=== PATIENT | female | born 1930 | race African-American/Black ===

== ENCOUNTER 2017-10-30 14:55 | Inpatient (IN) ==
[2017-10-30 15:22] LABS: Baso # (Auto) 0.1 th/mm3 (0.0-0.2); Baso % (Auto) 1.1 % (0.0-2.0); Eos # (Auto) 0.1 th/mm3 (0.0-0.4); Eos % (Auto) 1.6 % (0.0-4.0); Hematocrit 35.1 % (35.0-46.0); Hemoglobin 11.2 gm/dL (11.6-15.3); Lymph # (Auto) 2.8 th/mm3 (1.0-4.8); Lymph % (Auto) 37.4 % (9.0-44.0); Mean Corpuscular HGB Conc 31.9 % (32.0-36.0); Mean Corpuscular Hemoglobin 27.1 pg (27.0-34.0); Mean Corpuscular Volume 85.1 fL (80.0-100.0); Mean Platelet Volume 9.7 fL (7.0-11.0); Mono # (Auto) 0.5 th/mm3 (0.0-0.9); Neut % (Auto) 52.9 % (16.0-70.0); Platelet Count 189 th/mm3 (150-450); Red Blood Count 4.13 mil/mm3 (4.00-5.30); Red Cell Distribution Width 15.4 % (11.6-17.2); White Blood Count 7.6 th/mm3 (4.0-11.0)
--- NOTE | 2017-10-30 15:30 | CT ---
EXAM DATE: 10/30/2017 3:15 PM EDT AGE/SEX: 87 years / Female INDICATIONS: Stroke alert; slurred speech, altered mental status. CLINICAL DATA: This is the patient's initial encounter. Patient reports that signs and symptoms have been present for 1 day and indicates a pain score of Nonresponsive. MEDICAL/SURGICAL HISTORY: Diabetes. Hypertension. Pacemaker. RADIATION DOSE: 56.35 CTDI (mGy) COMPARISON: No prior exams available for comparison. Report was called to Dr. Lee at 1525 TECHNIQUE: CT of the head without contrast. Using automated exposure control and adjustment of the mA and/or kV according to patient size, radiation dose was kept as low as reasonably achievable to ob tain optimal diagnostic quality images. DICOM format image data is available electronically for revi ew and comparison. FINDINGS: Cerebrum: The ventricles are normal for age. No evidence of midline shift, mass lesion, hemorrhage or acute infarction. No extraaxial fluid collections are seen. Posterior Fossa: The cerebellum and brainstem are intact. The 4th ventricle is midline. The cerebe llopontine angle is unremarkable. Extracranial: The visualized portion of the orbits is intact. Skull: The calvaria is intact. No evidence of skull fracture. CONCLUSION: 1. Negative for acute process Electronically signed by: Ramiro Christie MD 10/30/2017 3:29 PM EDT
[2017-10-30 15:35] LABS: Activated Partial Thrombo Time 22.6 sec (24.3-30.1); Anion Gap 9 meq/L (5-15); Blood Urea Nitrogen 20 mg/dL (7-18); Calcium 9.4 mg/dL (8.5-10.1); Carbon Dioxide 22.7 meq/L (21.0-32.0); Chloride 113 meq/L (98-107); Glomerular Filtration Rate 42 mL/min (>89); Glucose,Random 97 mg/dL (74-106); Potassium 4.9 meq/L (3.5-5.1); Prothrombin Time 10.2 sec (9.8-11.6); Sodium 145 meq/L (136-145)
[2017-10-30 15:50] LABS: Creatine Kinase 53 U/L (26-192)
--- NOTE | 2017-10-30 15:55 | CT ---
EXAM DATE: 10/30/2017 3:49 PM EDT AGE/SEX: 87 years / Female INDICATIONS: Stroke alert; slurred speech, altered mental status. CLINICAL DATA: This is the patient's initial encounter. Patient reports that signs and symptoms have been present for 1 day and indicates a pain score of Nonresponsive. MEDICAL/SURGICAL HISTORY: Diabetes. Hypertension. Pacemaker. RADIATION DOSE: 9.96 CTDI (mGy) ; Combined studies COMPARISON: [facility] – [place], CT HEAD W/O CONTRAST, 10/30/2017. . TECHNIQUE: Volumetric scanning was performed using a multi-row detector CT scanner during bolus infu julien of 75 ml Omnipaque 350 (iohexol) nonionic water-soluble contrast as a cumulative dose for multi ple exams. The data was post processed with a variety of visualization algorithms including full vo lume maximum intensity projection, multi-planar sliding thin slab reformation, curved planar reformat ion, and surface rendering techniques. Using automated exposure control and adjustment of the mA and /or kV according to patient size, radiation dose was kept as low as reasonably achievable to obtain o ptimal diagnostic quality images. DICOM format image data is available electronically for review and comparison. FINDINGS: There is excellent visualization of the major intracranial arteries out to the second-order branch ve ssels. Moderate atherosclerotic intracranial vascular disease. Negative for major branch vessel occlu julien. CONCLUSION: 1. Negative for major branch vessel occlusion. Electronically signed by: Ramiro Christie MD 10/30/2017 3:54 PM EDT
--- NOTE | 2017-10-30 15:56 | XR ---
EXAM DATE: 10/30/2017 3:46 PM EDT AGE/SEX: 87 years / Female INDICATIONS: Stroke Alert. CLINICAL DATA: This is the patient's initial encounter. Patient reports that signs and symptoms have been present for 1 day and indicates a pain score of 0/10. MEDICAL/SURGICAL HISTORY: . Diabetes. Hypertension Pacemaker. COMPARISON: No prior exams available for comparison. FINDINGS: Pacemaker evident. Moderate cardiomegaly. No infiltrate or failure. Degenerative changes about both s houlders. CONCLUSION: Moderate compensated cardiomegaly. Electronically signed by: Ramiro Christie MD 10/30/2017 3:55 PM EDT
--- NOTE | 2017-10-30 16:30 | MB ---
cc: Clara Frances MD DATE: 10/30/2017 DATE OF : 1930 AGE: [age] years old. REASON FOR CONSULTATION: Stroke Alert. HISTORY OF PRESENT ILLNESS: The patient is an 87-year-old woman who was brought in as a Stroke Alert because she started having trouble speaking. She has a significant history of diabetes, neuropathy, A-fib, hypertension, pacemaker. Medication list is being sent to us, but she states she does not take any anticoagulants. We listed all of them and she did not recognize any of them. ALLERGIES: Apparently ALLERGIC PER CHART TO COUMADIN AND TO STATIN AND TO AMIODARONE. PRIMARY CARE DOCTOR: Dr. Kauffman SOCIAL HISTORY, FAMILY HISTORY: Unknown at this point in time. PHYSICAL EXAMINATION: GENERAL: She is a pleasant 87-year-old woman lying in bed in no distress. NECK: Supple. HEART: Irregular. LUNGS: Appear clear. ABDOMEN: Soft. EXTREMITIES: No significant edema. NEUROLOGIC: She is awake and alert now. Her speech is normal. She does not have any dysarthria or aphasia at this point in time, she is alert and oriented to her date of , today's date. Pupils are reactive. Visual brennan are full. Face symmetrical. Tongue is midline. No field cut. Motor-servin no weakness noted. No drift or leg lag. She has some residual pain in the right knee. She has had 3 surgeries, knee replacement. Toes are both downgoing. DTRs are trace upper, absent lower. Cerebellar is intact. Gait is withheld at this time. LABORATORY DATA: Just completed. Her CBC: Hemoglobin is 11.2, platelets 189,000. PTT 22.6. Fibrinogen 383. INR 1. Creatinine 1.44, GFR 42. Troponin less than 0.02. IMAGING STUDIES: CT of the head did not show anything acute. She had a CTA of the [place] as well. No major branch occlusion. They state there is excellent visualization of the major intracranial arteries after second order branch vessels, without any major occlusion, some moderate atherosclerotic disease, however. I am waiting on the CTA of the carotids. IMPRESSION: An 87-year-old woman with history of atrial fibrillation. It looks like she may have had what looks like a transient ischemic attack. She seems to be back to baseline. RECOMMENDATIONS: Recommend at this point in time to obtain all her medications. We will get a 2-D echo as well as fasting lipid panel, hemoglobin A1c. Start her on some aspirin. We will need to determine on obtaining notes from her primary to see why she is not on anticoagulation. Check and see when her pacer has been last checked. Subcutaneous heparin for DVT prevention. Permissible hypertension. Telemetry, PT, OT, speech therapy evaluation. Depending on other findings, further recommendations will be made accordingly. At this point in time, tPA was not given due to the fact of rapidly improving symptoms and she seems back to baseline. MD ROSY Mansfield/FRANCISCO , 04:08 PM , 04:28 PM
--- NOTE | 2017-10-30 16:40 | ED ---
HPI General Chief Complaint: Stroke Alert Stated Complaint: Stroke Alert Time Seen by Provider: 10/30/17 15:29 History of Present Illness HPI Narrative: Patient presents to the emergency department with altered mental status. She was at home with family going over paperwork when she suddenly became altered and had slurred speech, facial droop, and not really answering questions. Symptoms began 15-20 minutes prior to ER arrival. Was brought in by [facility] Accu-Chek was 111. Upon patient's arrival in the ER she is only answering yes to all questions. Related Data Allergies Allergy/AdvReac Type Severity Reaction Status Date / Time amiodarone Allergy Unknown Unverified 12/02/16 15:26 simvastatin Allergy Unknown Unverified 12/02/16 15:26 warfarin Allergy Unknown Unverified 12/02/16 15:26 Review of Systems ROS Unobtainable unobtainable due to mental status FORMERLY [facility], 1928–1983 Medical History Medical History Diabetes (Acute) Hypertension (Acute) Pacemaker (Acute) Exam Narrative Exam Narrative: GENERAL: Awake, alert, no acute distress. SKIN: Focused skin assessment warm/dry. HEAD: Atraumatic. Normocephalic. EYES: Pupils equal and round. No scleral icterus. No injection or drainage. ENT: No nasal bleeding or discharge. Mucous membranes pink and moist. NECK: Trachea midline. No JVD. CARDIOVASCULAR: Regular rate and rhythm. No murmur appreciated. RESPIRATORY: No accessory muscle use. Clear to auscultation. Breath sounds equal bilaterally. GASTROINTESTINAL: Abdomen soft, non-tender, nondistended. Hepatic and splenic margins not palpable. MUSCULOSKELETAL: No obvious deformities. No clubbing. No cyanosis. No edema. NEUROLOGICAL: Awake and alert. NIH stroke scale initially 21 but not able to fully assess secondary to patient repeating the word yes. PSYCHIATRIC: Altered. Course Initial Documented Vital Signs Temperature 98.4 F 10/30/17 15:01 Pulse Rate 84 10/30/17 15:01 Respiratory Rate 18 10/30/17 15:01 Blood Pressure 173/77 H 10/30/17 15:01 Pulse Oximetry 98 10/30/17 15:01 Last Documented Vital Signs Temperature 98.4 F 10/30/17 15:01 Pulse Rate 84 10/30/17 15:01 Respiratory Rate 18 10/30/17 15:01 Blood Pressure 173/77 H 10/30/17 15:01 Pulse Oximetry 97 10/30/17 15:01 Medical Decision Making MDM Narrative Medical decision making narrative: .Patient presents to the emergency department secondary to altered mental status, questionable stroke. She was made a stroke alert. Patient was placed on the cardiac cath rn, continuous pulse ox, and IV access was obtained upon arrival in the ER department. Emergent head CT was negative for any acute findings. CTA head was negative for any acute findings. CTA neck. ECG shows ventricular paced rhythm at 84. Chest x-ray showed moderately compensated cardiomegaly. CBC shows slightly decreased hemoglobin. Coags show elevated fibrinogen. Chemistry shows elevated creatinine, BUN. Patient has a digoxin level that is pending at time of admission and admit MD will follow. Patient was called for stroke alert the neurologist, Dr. Frances, was at the patient's bedside. Upon her assessment the patient's neuro status improved and symptoms were resolving as patient could not move her lower extremities and answer questions appropriately. As such, the decision was made to hold TPA secondary to rapidly improving symptoms. Patient will be admitted for further evaluation and management. Differential Diagnosis Differential Diagnosis: CVA, TIA, ICH. Lab Data Result diagrams: 10/30/17 15:00 10/30/17 15:00 Lab Results 10/30/17 10/30/17 10/30/17 Range/Units 15:00 15:00 15:00 WBC 7.6 (4.0-11.0) th/mm3 RBC 4.13 (4.00-5.30) mil/mm3 Hgb 11.2 L (11.6-15.3) gm/dL POC Hgb (Calc) 11.6 (11.6-15.3) g/dL Hct 35.1 (35.0-46.0) % POC Hct 34.0 L (35-46.0) % MCV 85.1 (80.0-100.0) fL MCH 27.1 (27.0-34.0) pg MCHC 31.9 L (32.0-36.0) % RDW 15.4 (11.6-17.2) % Plt Count 189 (150-450) th/mm3 MPV 9.7 (7.0-11.0) fL Neut % (Auto) 52.9 (16.0-70.0) % Lymph % (Auto) 37.4 (9.0-44.0) % Gonzales % (Auto) 7.0 (0.0-8.0) % Eos % (Auto) 1.6 (0.0-4.0) % Baso % (Auto) 1.1 (0.0-2.0) % Neut # (Auto) 4.0 (1.8-7.7) th/mm3 Lymph # (Auto) 2.8 (1.0-4.8) th/mm3 Gonzales # (Auto) 0.5 (0.0-0.9) th/mm3 Eos # (Auto) 0.1 (0.0-0.4) th/mm3 Baso # (Auto) 0.1 (0.0-0.2) th/mm3 WBC Differential . Differential Comment Auto diff final PT 10.2 (9.8-11.6) sec INR 1.0 Ratio APTT 22.6 L (24.3-30.1) sec Fibrinogen 383 H (227-377) mg/dL POC Sodium 143 (137-144) mmol/L Sodium 145 (136-145) meq/L POC Potassium 5.0 (3.6-5.0) mmol/L Potassium 4.9 (3.5-5.1) meq/L POC Chloride 112 H (102-111) mmol/L Chloride 113 H (98-107) meq/L Carbon Dioxide 22.7 (21.0-32.0) meq/L Anion Gap 9 (5-15) meq/L POC BUN 23 H (5-21) mg/dL BUN 20 H (7-18) mg/dL Creatinine 1.44 H (0.50-1.00) mg/dL POC Creatinine 1.4 H (0.6-1.3) mg/dL Estimated GFR 42 L (>89) mL/min POC Glucose 100 (68-110) mg/dL Random Glucose 97 (74-106) mg/dL Calcium 9.4 (8.5-10.1) mg/dL Total Creatine Kinase 53 (26-192) U/L Troponin I Less than 0.02 L (0.02-0.05) ng/mL Blood Type 10/30/17 Range/Units 15:45 WBC (4.0-11.0) th/mm3 RBC (4.00-5.30) mil/mm3 Hgb (11.6-15.3) gm/dL POC Hgb (Calc) (11.6-15.3) g/dL Hct (35.0-46.0) % POC Hct (35-46.0) % MCV (80.0-100.0) fL MCH (27.0-34.0) pg MCHC (32.0-36.0) % RDW (11.6-17.2) % Plt Count (150-450) th/mm3 MPV (7.0-11.0) fL Neut % (Auto) (16.0-70.0) % Lymph % (Auto) (9.0-44.0) % Gonzales % (Auto) (0.0-8.0) % Eos % (Auto) (0.0-4.0) % Baso % (Auto) (0.0-2.0) % Neut # (Auto) (1.8-7.7) th/mm3 Lymph # (Auto) (1.0-4.8) th/mm3 Gonzales # (Auto) (0.0-0.9) th/mm3 Eos # (Auto) (0.0-0.4) th/mm3 Baso # (Auto) (0.0-0.2) th/mm3 WBC Differential Differential Comment PT (9.8-11.6) sec INR Ratio APTT (24.3-30.1) sec Fibrinogen (227-377) mg/dL POC Sodium (137-144) mmol/L Sodium (136-145) meq/L POC Potassium (3.6-5.0) mmol/L Potassium (3.5-5.1) meq/L POC Chloride (102-111) mmol/L Chloride (98-107) meq/L Carbon Dioxide (21.0-32.0) meq/L Anion Gap (5-15) meq/L POC BUN (5-21) mg/dL BUN (7-18) mg/dL Creatinine (0.50-1.00) mg/dL POC Creatinine (0.6-1.3) mg/dL Estimated GFR (>89) mL/min POC Glucose (68-110) mg/dL Random Glucose (74-106) mg/dL Calcium (8.5-10.1) mg/dL Total Creatine Kinase (26-192) U/L Troponin I (0.02-0.05) ng/mL Blood Type B Positive Imaging Data Radiologist's impression: Chest X-Ray 10/30/17 14:58 CONCLUSION: Moderate compensated cardiomegaly. Head CT 10/30/17 14:58 CONCLUSION: 1. Negative for acute process Head CTA 10/30/17 14:58 CONCLUSION: 1. Negative for major branch vessel occlusion. Discharge Plan Discharge Disposition Patient Disposition: 30 Still Patient Discharge Condition Condition: Stable Discharge Details Diagnosis: Transient cerebral ischemia Physicians Team ED Provider: Tonja Montanez Primary Care Provider: Samira Downey Attending Provider: Jayson Ruano Other Providers: Clara Frances Status ED Status: Admitted Patient
--- NOTE | 2017-10-30 16:47 | CT ---
EXAM DATE: 10/30/2017 4:42 PM EDT AGE/SEX: 87 years / Female INDICATIONS: Stroke alert; slurred speech and altered mental status. CLINICAL DATA: This is the patient's initial encounter. Patient reports that signs and symptoms have been present for 1 day and indicates a pain score of Nonresponsive. MEDICAL/SURGICAL HISTORY: Diabetes. Hypertension. Pacemaker. RADIATION DOSE: 9.96 CTDI (mGy) ; Combined studies COMPARISON: No prior exams available for comparison. TECHNIQUE: Volumetric scanning was performed using a multirow detector CT scanner during bolus infus ion of 75 ml Omnipaque 350 (iohexol) nonionic water-soluble contrast as a cumulative dose for multip le exams. The data was postprocessed with a variety of visualization algorithms including full-volu me maximum intensity projection, multiplanar sliding thin-slab reformation, curved-planar reformation , and surface-rendering techniques. Using automated exposure control and adjustment of the mA and/or kV according to patient size, radiation dose was kept as low as reasonably achievable to obtain opti mal diagnostic quality images. DICOM format image data is available electronically for review and co mparison. FINDINGS: Aortic Arch: Atherosclerotic elongation of the arch. Right Carotid: There is calcific plaque at the origin of the right internal carotid compromise the l umen on the order of 40-50% with some soft plaque evident. Left Carotid: Calcific plaque is evident on the left, compromising the lumen by less than 50% with s oft plaque evident. Vertebrals: The vertebral arteries have a symmetric diameter. No stenotic lesions are seen. Elevated flow velocities and ICA/CCA ratios have been found to correlate with increased degrees of ve ssel stenosis, calculated as percentage of diameter relative to a normal segment of distal ICA/CCA. CONCLUSION: 1. Calcific plaque bilaterally. The calcific plaque is not hemodynamically significant. Soft plaque on the right and left is identified more on the right. Electronically signed by: Ramiro Christie MD 10/30/2017 4:46 PM EDT
[2017-10-30 16:59] LABS: Bilirubin,Urine Negative (Negative); Clarity,Urine Hazy (Clear); Color,Urine Straw (Yellw/Straw); Glucose,Urine (UA) Negative (Negative); Leukocyte Esterase,Urine Negative (Negative); Nitrite,Urine Negative (Negative); Specific Gravity,Urine 1.021 (1.002-1.035); Squamous Epithelial Cell,Urine 5 /hpf (0-5)
[2017-10-30] MEDS ORDERED: Dextrose 50% in Water 50 ML Vial IV.PUSH PRN (17:52)
--- NOTE | 2017-10-30 17:58 | P.HPIM ---
History of Present Illness Service: Pt is 87 yo presenting with slurring speech/confusion per family/right facial droop. In ED her neurological deficits improved and she was not a tpa candidate. Pt underwent evaluation by neurology in the ED. CT and CTA head showed no acute cva. Concern for TIA and pt admitted for further neurological evaluation. She has hx of afib and only on asa. Apparently was not able to tolerate coumadin in the past but no mention of bleeding with anticoagulation. PMH: systolic chf echo 05/04: mod lvh. diastolic dysfunction ef 35% dm htn afib defibrillator ckd 3 cr/gfr baseline 1.34 cad hx VT copd hgaic 6.5 Primary Care Physician: Samira Downey MD - Diagnosis (1) Transient cerebral ischemia (2) A-fib (3) HTN (hypertension) Inpatient Certification: I certify that the inpatient services were ordered in accordance with Medicare regulations governing the order. This includes certification that hospital inpatient services are reasonable and necessary and in the case of services not specified as inpatient-only under 42 CFR 419.22(n), that they are appropriately provided as inpatient services in accordance to with the 2-midnight benchmark under 43 CFR 412.3(e) Estimated Total Length of Stay (Days): 2 Plans for Post Hospital Care: Home Review of Systems facial droop. confusion PMFSH - History History Provided By: Patient, Family Member, Production Editor / EMT - Medical History Medical History: Medical History (Last Reviewed 11/03/17 @ 07:23 by Luis F Shepard) Diabetes Hypertension Pacemaker Medications and Allergies Active Medications: Active Medications Hydrocodone Bitart/Acetaminophen (B[place]ow 7.5/325) 1 tab PO Q6H PRN PRN Reason: pain 3-10 Albuterol (Ventolin Hfa Inh) 2 puff INH Q4H PRN PRN Reason: sob Aspirin (Aspirin) 325 mg PO DAILY MANDO Budesonide/Formoterol Fumarate (Symbicort 160/4.5 Mcg Inh) 2 puff INH BID MANDO Dextrose (D50w Vial) 50 ml IV.PUSH UNSCH PRN PRN Reason: PER HYPOGLYCEMIA PROTOCOL Digoxin (Lanoxin) 125 mcg PO DAILY MANDO Diltiazem HCl (Cardizem Cd 24hr) 180 mg PO DAILY MANDO Duloxetine HCl (Cymbalta) 20 mg PO BID MANDO Glucagon (Glucagon Inj) 1 mg OTHER PRN PRN PRN Reason: for Hypoglycemia Protocol Insulin Aspart (Novolog Insulin Suppl Scale Inj) 0 unit SQ ACHS MANDO; Protocol Sotalol HCl (Betapace) 80 mg PO BID MANDO Allergies Allergy/AdvReac Type Severity Reaction Status Date / Time amiodarone Allergy Unknown Unverified 12/02/16 15:26 simvastatin Allergy Unknown Unverified 12/02/16 15:26 warfarin Allergy Unknown Unverified 12/02/16 15:26 Home Medications Medication Instructions Recorded Confirmed Type digoxin [Digox] 0.125 mg PO DAILY 11/02/17 11/02/17 History diltiazem HCl 180 mg PO DAILY 11/02/17 11/02/17 History duloxetine 20 mg PO BID 11/02/17 11/02/17 History fluticasone-salmeterol [AirDuo 1 puff INHALATION BID 11/02/17 11/02/17 History RespiClick] hydrocodone-acetaminophen [B[place]ow] 1 tab PO Q6H PRN 11/02/17 11/02/17 History sotalol 80 mg PO Q12H 11/02/17 11/02/17 History spironolactone 25 mg PO DAILY 11/02/17 11/02/17 History Exam Vital signs: Vital Signs 10/30/17 15:01 Temperature 98.4 F Pulse Rate 84 Respiratory Rate 18 Blood Pressure 173/77 H Pulse Oximetry 97 Intake & Output 10/29/17 10/30/17 10/30/17 18:59 06:59 18:59 Weight 81.2 kg nad. pleasant. follows command heart irreg lung cta abd s/nt ext no edema mild right facial droop Results - Labs CBC & Chem 7: 10/31/17 05:07 10/31/17 05:07 Labs: Short CBC 10/30/17 Range/Units 15:00 WBC 7.6 (4.0-11.0) th/mm3 Hgb 11.2 L (11.6-15.3) gm/dL Hct 35.1 (35.0-46.0) % Plt Count 189 (150-450) th/mm3 BMP 10/30/17 15:00 Sodium 145 Potassium 4.9 Chloride 113 H Carbon Dioxide 22.7 BUN 20 H Creatinine 1.44 H Calcium 9.4 Cardiac Enzymes 10/30/17 Range/Units 15:00 Total Creatine Kinase 53 (26-192) U/L Troponin I Less than 0.02 L (0.02-0.05) ng/mL Urine 10/30/17 Range/Units 16:40 Urine Color Straw (Yellw/Straw) Urine Clarity Hazy H (Clear) Urine pH 6.0 (5.0-8.5) Ur Specific Naylor 1.021 (1.002-1.035) Urine Protein 30 H (Neg-Trace) mg/dL Urine Glucose (UA) Negative (Negative) mg/dL - Imaging Impressions Chest X-Ray 10/30/17 14:58 CONCLUSION: Moderate compensated cardiomegaly. Head CT 10/30/17 14:58 CONCLUSION: 1. Negative for acute process Head CTA 10/30/17 14:58 CONCLUSION: 1. Negative for major branch vessel occlusion. Neck CTA 10/30/17 14:58 CONCLUSION: 1. Calcific plaque bilaterally. The calcific plaque is not hemodynamically significant. Soft plaque on the right and left is identified more on the right. Caprini VTE Risk Assessment Caprini VTE Risk Assessment: Moderate/High Risk (score >= 2) Caprini Risk Assessment Model: Point Value = 1 Point Value = 2 Point Value = 3 Point Value = 5 Age 41-60 Minor surgery BMI > 25 kg/m2 Swollen legs Varicose veins or History of unexplained or recurrent spontaneous Oral contraceptives or hormone replacement Sepsis (< 1 month) Serious lung disease, including pneumonia (< 1 month) Abnormal pulmonary function Acute myocardial infarction Congestive heart failure (< 1 month) History of inflammatory bowel disease Medical patient at bed rest Age 61-74 Arthroscopic surgery Major open surgery (> 45 min) Laparoscopic surgery (> 45 min) Malignancy Confined to bed (> 72 hours) Immobilizing plaster cast Central venous access Age >= 75 History of VTE Family history of VTE Factor V Leiden Prothrombin [id number] Lupus anticoagulant Anticardiolipin antibodies Elevated serum homocysteine Heparin-induced thrombocytopenia Other congenital or acquired thrombophilia Stroke (< 1 month) Elective arthroplasty Hip, pelvis, or leg fracture Acute spinal cord injury (< 1 month) Prophylaxis Regimen: Total Risk Factor Score Risk Level Prophylaxis Regimen 0-1 Low Early ambulation 2 Moderate Order ONE of the following: *Sequential Compression Device (SCD) *Heparin 5000 units SQ BID 3-4 Higher Order ONE of the following medications: *Heparin 5000 units SQ TID *Enoxaparin/Lovenox 40 mg SQ daily (WT < 150 kg, CrCl > 30 mL/min) *Enoxaparin/Lovenox 30 mg SQ daily (WT < 150 kg, CrCl > 10-29 mL/min) *Enoxaparin/Lovenox 30 mg SQ BID (WT < 150 kg, CrCl > 30 mL/min) AND/OR *Sequential Compression Device (SCD) 5 or more Highest Order ONE of the following medications: *Heparin 5000 units SQ TID (Preferred with Epidurals) *Enoxaparin/Lovenox 40 mg SQ daily (WT < 150 kg, CrCl > 30 mL/min) *Enoxaparin/Lovenox 30 mg SQ daily (WT < 150 kg, CrCl > 10-29 mL/min) *Enoxaparin/Lovenox 30 mg SQ BID (WT < 150 kg, CrCl > 30 mL/min) AND *Sequential Compression Device (SCD) Assessment and Plan - Assessment (1) Transient cerebral ischemia Code(s): G45.9 - Transient cerebral ischemic attack, unspecified Status: Acute Plan: TIA. Pt presented with acute onset confusion and right facial droop. concern for embolic cva given her afib and no anticoagulation. initial imaging with ct and angiogram negative for acute cva. neurology evaluation hob flat permissive htn initially asa the berny melton when ok with neuro. st/ot/pt dvt prophylaxis echo and telemetry. continue afib rate control dm chf. systolic. compensated afib. as above. (2) A-fib Code(s): I48.91 - Unspecified atrial fibrillation Status: Chronic (3) HTN (hypertension) Code(s): I10 - Essential (primary) hypertension Status: Chronic (1) Transient cerebral ischemia Qualifiers: Transient cerebral ischemia type: unspecified Qualified Code(s): G45.9 - Transient cerebral ischemic attack, unspecified
[2017-10-30 18:03] LABS: Digoxin 0.2 ng/mL (0.8-2.0)
[2017-10-30] MEDS ORDERED: Budesonide-Formoterol 160/4.5 MCG 6 GM Inhaler INH SCH (21:00)
[2017-10-30] MEDS ORDERED: Insulin NovoLOG Aspart Correctional Sugar Inj SQ SCH (21:00)
[2017-10-31] MEDS: Insulin NovoLOG Aspart Correctional Sugar Inj SQ SCH ×5 (01:00→20:55)
[2017-10-31] MEDS: Budesonide-Formoterol 160/4.5 MCG 6 GM Inhaler INH SCH ×3 (01:04→20:57)
[2017-10-31 05:50] LABS: Baso # (Auto) 0.1 th/mm3 (0.0-0.2); Baso % (Auto) 0.7 % (0.0-2.0); Eos # (Auto) 0.1 th/mm3 (0.0-0.4); Eos % (Auto) 1.3 % (0.0-4.0); Hematocrit 31.6 % (35.0-46.0); Hemoglobin 10.1 gm/dL (11.6-15.3); Lymph # (Auto) 2.8 th/mm3 (1.0-4.8); Lymph % (Auto) 32.6 % (9.0-44.0); Mean Corpuscular HGB Conc 31.8 % (32.0-36.0); Mean Corpuscular Hemoglobin 27.3 pg (27.0-34.0); Mean Corpuscular Volume 85.7 fL (80.0-100.0); Mean Platelet Volume 9.4 fL (7.0-11.0); Mono # (Auto) 0.6 th/mm3 (0.0-0.9); Mono % (Auto) 7.4 % (0.0-8.0); Platelet Count 165 th/mm3 (150-450); Red Blood Count 3.69 mil/mm3 (4.00-5.30); Red Cell Distribution Width 15.3 % (11.6-17.2); White Blood Count 8.6 th/mm3 (4.0-11.0)
[2017-10-31 06:36] LABS: Calcium 9.1 mg/dL (8.5-10.1); Carbon Dioxide 19.9 meq/L (21.0-32.0); Potassium 4.8 meq/L (3.5-5.1)
[2017-10-31] MEDS: dilTIAZem CD 180 MG Capsule PO SCH (08:15)
[2017-10-31] MEDS: Digoxin 125 MCG Tablet PO SCH (08:15)
[2017-10-31] MEDS: Aspirin 325 MG Tablet PO SCH (08:15)
[2017-10-31] MEDS: Enoxaparin Inj 40 MG/0.4 ML Syringe SQ SCH (08:16)
--- NOTE | 2017-10-31 08:25 | ECG ---
Date Performed: 10/30/2017 Time Performed: 15:48:52 PTAGE: 87 years EKG: ELECTRONIC VENTRICULAR PACEMAKER ABNORMAL RHYTHM ECG PREVIOUS TRACING : 03/10/2008 05.10 DOCTOR: Ericka Pierre Interpretating Date/Time 10/31/2017 08:20:55
[2017-10-31] MEDS ORDERED: Digoxin 125 MCG Tablet PO SCH (09:00)
[2017-10-31] MEDS ORDERED: dilTIAZem CD 180 MG Capsule PO SCH (09:00)
[2017-10-31] MEDS ORDERED: Aspirin 325 MG Tablet PO SCH (09:00)
[2017-10-31] MEDS: Loratadine 10 MG Tablet PO SCH (12:21)
--- NOTE | 2017-10-31 13:32 | P.PNIM ---
Subjective Interval history: Pt overall feeling well today She still has a noted right sided facial droop Speech is better today Physical Exam Vital signs: Vital Signs 10/30/17 15:01 10/30/17 21:58 10/31/17 04:00 Temperature 98.4 F 97.8 F 97.9 F Pulse Rate 84 73 64 Respiratory Rate 18 16 14 Blood Pressure 173/77 H 120/69 120/57 L Pulse Oximetry 97 95 95 10/31/17 05:49 10/31/17 08:24 10/31/17 10:57 Temperature 97.7 F 98.5 F Pulse Rate 72 81 Respiratory Rate 16 18 Blood Pressure 128/60 188/84 H Pulse Oximetry 95 97 97 10/31/17 12:00 Temperature 98.6 F Pulse Rate 58 L Respiratory Rate 16 Blood Pressure 143/66 H Pulse Oximetry 96 Intake & Output 10/30/17 10/31/17 10/31/17 18:59 06:59 18:59 Weight 81.2 kg 83 kg Other: # Voids 4 Date of Last Bowel Movement 10/31/17 10/30/17 # Bowel Movements 2 Narrative: General: NAD, AAOx3 ENT: Right sided slight facial droop Chest: CTA Cardiac: Regular Abd: +BS, soft ND/NT Ext: No edema, VAN Results - Labs CBC & Chem 7: 10/31/17 05:07 10/31/17 05:07 Laboratory Results - last 24 hr 10/30/17 10/30/17 10/30/17 15:00 15:00 15:00 WBC 7.6 RBC 4.13 Hgb 11.2 L POC Hgb (Calc) 11.6 Hct 35.1 POC Hct 34.0 L MCV 85.1 MCH 27.1 MCHC 31.9 L RDW 15.4 Plt Count 189 MPV 9.7 Neut % (Auto) 52.9 Lymph % (Auto) 37.4 [place] % (Auto) 7.0 Eos % (Auto) 1.6 Baso % (Auto) 1.1 Neut # (Auto) 4.0 Lymph # (Auto) 2.8 [place] # (Auto) 0.5 Eos # (Auto) 0.1 Baso # (Auto) 0.1 WBC Differential . Differential Comment Auto diff final PT 10.2 INR 1.0 APTT 22.6 L Fibrinogen 383 H POC Sodium 143 Sodium 145 POC Potassium 5.0 Potassium 4.9 POC Chloride 112 H Chloride 113 H Carbon Dioxide 22.7 Anion Gap 9 POC BUN 23 H BUN 20 H Creatinine 1.44 H POC Creatinine 1.4 H Estimated GFR 42 L POC Glucose 100 Random Glucose 97 Calcium 9.4 Total Creatine Kinase 53 Troponin I Less than 0.02 L Urine Color Urine Clarity Urine pH Ur Specific [place] Urine Protein Urine Glucose (UA) Urine Ketones Urine Occult Blood Urine Nitrate Urine Bilirubin Urine Urobilinogen Ur Leukocyte Esterase Urine WBC Ur Squamous Epith Cells Granular Casts Micro UA Comment Urine Culture Comments Digoxin 0.2 L Blood Type Antibody Screen 10/30/17 10/30/17 10/30/17 15:00 15:45 16:40 WBC RBC Hgb POC Hgb (Calc) Hct POC Hct MCV MCH MCHC RDW Plt Count MPV Neut % (Auto) Lymph % (Auto) Stephenson % (Auto) Eos % (Auto) Baso % (Auto) Neut # (Auto) Lymph # (Auto) [place] # (Auto) Eos # (Auto) Baso # (Auto) WBC Differential Differential Comment PT INR APTT Fibrinogen POC Sodium Sodium POC Potassium Potassium POC Chloride Chloride Carbon Dioxide Anion Gap POC BUN BUN Creatinine POC Creatinine Estimated GFR POC Glucose Random Glucose Calcium Total Creatine Kinase Troponin I Urine Color Straw Urine Clarity Hazy H Urine pH 6.0 Ur Specific [place] 1.021 Urine Protein 30 H Urine Glucose (UA) Negative Urine Ketones Negative Urine Occult Blood Negative Urine Nitrate Negative Urine Bilirubin Negative Urine Urobilinogen Less than 2 Ur Leukocyte Esterase Negative Urine WBC 1 Ur Squamous Epith Cells 5 Granular Casts 1 Micro UA Comment Culture not ind Urine Culture Comments Culture not ind Digoxin Cancelled Blood Type B Positive Antibody Screen Negative 10/30/17 10/31/17 10/31/17 20:57 05:07 05:07 WBC 8.6 RBC 3.69 L Hgb 10.1 L POC Hgb (Calc) Hct 31.6 L POC Hct MCV 85.7 MCH 27.3 MCHC 31.8 L RDW 15.3 Plt Count 165 MPV 9.4 Neut % (Auto) 58.0 Lymph % (Auto) 32.6 Stephenson % (Auto) 7.4 Eos % (Auto) 1.3 Baso % (Auto) 0.7 Neut # (Auto) 5.0 Lymph # (Auto) 2.8 [place] # (Auto) 0.6 Eos # (Auto) 0.1 Baso # (Auto) 0.1 WBC Differential . Differential Comment Auto diff final PT INR APTT Fibrinogen POC Sodium Sodium 145 POC Potassium Potassium 4.8 POC Chloride Chloride 115 H Carbon Dioxide 19.9 L Anion Gap 10 POC BUN BUN 18 Creatinine 1.06 H POC Creatinine Estimated GFR 59 L POC Glucose 127 H Random Glucose 99 Calcium 9.1 Total Creatine Kinase Troponin I Urine Color Urine Clarity Urine pH Ur Specific [place] Urine Protein Urine Glucose (UA) Urine Ketones Urine Occult Blood Urine Nitrate Urine Bilirubin Urine Urobilinogen Ur Leukocyte Esterase Urine WBC Ur Squamous Epith Cells Granular Casts Micro UA Comment Urine Culture Comments Digoxin Blood Type Antibody Screen 10/31/17 10/31/17 07:45 11:56 WBC RBC Hgb POC Hgb (Calc) Hct POC Hct MCV MCH MCHC RDW Plt Count MPV Neut % (Auto) Lymph % (Auto) [place] % (Auto) Eos % (Auto) Baso % (Auto) Neut # (Auto) Lymph # (Auto) [place] # (Auto) Eos # (Auto) Baso # (Auto) WBC Differential Differential Comment PT INR APTT Fibrinogen POC Sodium Sodium POC Potassium Potassium POC Chloride Chloride Carbon Dioxide Anion Gap POC BUN BUN Creatinine POC Creatinine Estimated GFR POC Glucose 98 187 H Random Glucose Calcium Total Creatine Kinase Troponin I Urine Color Urine Clarity Urine pH Ur Specific [place] Urine Protein Urine Glucose (UA) Urine Ketones Urine Occult Blood Urine Nitrate Urine Bilirubin Urine Urobilinogen Ur Leukocyte Esterase Urine WBC Ur Squamous Epith Cells Granular Casts Micro UA Comment Urine Culture Comments Digoxin Blood Type Antibody Screen - Imaging Impressions Chest X-Ray 10/30/17 14:58 CONCLUSION: Moderate compensated cardiomegaly. Head CT 10/30/17 14:58 CONCLUSION: 1. Negative for acute process Head CTA 10/30/17 14:58 CONCLUSION: 1. Negative for major branch vessel occlusion. Neck CTA 10/30/17 14:58 CONCLUSION: 1. Calcific plaque bilaterally. The calcific plaque is not hemodynamically significant. Soft plaque on the right and left is identified more on the right. Assessment and Plan - Assessment (1) Transient cerebral ischemia Code(s): G45.9 - Transient cerebral ischemic attack, unspecified Status: Acute Plan: TIA Right sided facial droop - Pt is an 87 y/o woman with HTN, diabtes, neuropathy, and atrial fibrillation only on ASA 81mg at home. She was brought in as a Stroke Alert on 10/30/17 because she started having trouble speaking. - Head CT 10/30/17 --> Negative for acute process - Head CTA 10/30/17 --> Negative for major branch vessel occlusion. - Neck CTA 10/30/17 --> Calcific plaque bilaterally. The calcific plaque is not hemodynamically significant. Soft plaque on the right and left is identified more on the right. - Pt unable to have a MRI due to pacemaker in place. - Neurology following - PT/ST - Telemetry - 2D echo is ordered - Pt will need to be started on anticoagulant given her A. fib when cleared by Neurology to do so A. fib - Cont. Cardizem and Dig - Pt was on ASA as an outpt - She has a listed allergy to Coumadin, but the specifics of this are unclear. She denies any hx of significant bleeding problems (2) A-fib Code(s): I48.91 - Unspecified atrial fibrillation Status: Chronic (3) HTN (hypertension) Code(s): I10 - Essential (primary) hypertension Status: Chronic - Attending Attestation The exam, history, and the medical decision-making described in the above note were completed with the assistance of the mid-level provider. I reviewed and agree with the findings presented. I attest that I had a [id number] encounter with the patient on the same day, and personally performed and documented my assessment and findings in the medical record. Patient examined. Assessment and plan formulated with Evelina Brambila PA-C. I agree with the above. (1) Transient cerebral ischemia Qualifiers: Transient cerebral ischemia type: unspecified Qualified Code(s): G45.9 - Transient cerebral ischemic attack, unspecified
[2017-11-01] MEDS: Insulin NovoLOG Aspart Correctional Sugar Inj SQ SCH ×4 (08:29→20:16)
[2017-11-01] MEDS: Digoxin 125 MCG Tablet PO SCH (08:31)
[2017-11-01] MEDS: Loratadine 10 MG Tablet PO SCH (08:32)
[2017-11-01] MEDS: dilTIAZem CD 180 MG Capsule PO SCH (08:32)
[2017-11-01] MEDS: Aspirin 325 MG Tablet PO SCH (08:32)
[2017-11-01] MEDS: Enoxaparin Inj 40 MG/0.4 ML Syringe SQ SCH (08:32)
[2017-11-01] MEDS: Budesonide-Formoterol 160/4.5 MCG 6 GM Inhaler INH SCH ×2 (08:34→20:17)
--- NOTE | 2017-11-01 10:19 | ECHRPT ---
Indication: CVA/TIA CONCLUSIONS The left ventricular systolic function is severely reduced with an estimated ejection fraction less than 20%. Moderate concentric left ventricular hypertrophy. Normal left ventricular size. The left atrial size is grek-zw-oskwewhupr dilated. There is a pacemaker wire present in the right atrial cavity. Mitral annular calcification is present. Moderate mitral valve regurgitation. Diffuse calcification of the aortic valve. Aortic valve sclerosis is present. There is mild to moderate tricuspid regurgitation. The estimated pulmonary arterial pressure is 53.6 mmHg. Pacemaker wire is present within the right ventricular cavity. Trivial pulmonary valve regurgitation. BP: / HR: Rhythm: MEASUREMENTS (Male / Female) Normal Values Technical Quality:Technically difficult study 2D ECHO LV Diastolic Diameter PLAX 4.9 cm 4.2 - 5.9 / 3.9 - 5.3 cm LV Systolic Diameter PLAX 4.7 cm IVS Diastolic Thickness 1.6 cm 0.6 - 1.0 / 0.6 - 0.9 cm LVPW Diastolic Thickness 1.6 cm 0.6 - 1.0 / 0.6 - 0.9 cm LV Relative Wall Thickness 0.6 RV Internal Dim ED PLAX 3.3 cm LVOT Diameter 2.0 cm LA Systolic Diameter LX 4.1 cm 3.0 - 4.0 / 2.7 - 3.8 cm M-MODE Aortic Root Diameter MM 2.9 cm LA Systolic Diameter MM 3.5 cm LA Ao Ratio MM 1.2 AV Cusp Separation MM 1.4 cm DOPPLER AV Peak Velocity 231.0 cm/s AV Peak Gradient 21.3 mmHg AV Mean Gradient 9.7 mmHg AV Velocity Time Integral 48.1 cm LVOT Peak Velocity 99.6 cm/s LVOT Peak Gradient 4.0 mmHg LVOT Velocity Time Integral 23.1 cm AV Area Cont Eq vti 1.5 cm AV Area Cont Eq pk 1.4 cm MV Area PHT 1.6 cm Mitral E Point Velocity 70.2 cm/s Mitral A Point Velocity 128.0 cm/s Mitral E to A Ratio 0.5 LV E' Lateral Velocity 5.3 cm/s Mitral E to LV E' Lateral Ratio 13.3 LV E' Septal Velocity 3.2 cm/s Mitral E to LV E' Septal Ratio 21.8 TR Peak Velocity 330.0 cm/s TR Peak Gradient 43.6 mmHg Right Atrial Pressure 10.0 mmHg Pulmonary Artery Systolic Pressu 53.6 mmHg Right Ventricular Systolic Press 53.6 mmHg FINDINGS LEFT VENTRICLE The left ventricular systolic function is severely reduced with an estimated ejection fraction less than 20%. Moderate concentric left ventricular hypertrophy. Normal left ventricular size. RIGHT VENTRICLE Normal right ventricular size and systolic function. LEFT ATRIUM The left atrial size is pauo-fs-nsmjhfknts dilated. RIGHT ATRIUM There is a pacemaker wire present in the right atrial cavity. ATRIAL SEPTUM Normal atrial septal thickness without atrial level shunting by limited color doppler interrogation. AORTA The aortic root and proximal ascending aorta are normal in size on limited imaging. MITRAL VALVE Mitral annular calcification is present. Moderate mitral valve regurgitation. AORTIC VALVE Trileaflet aortic valve. Diffuse calcification of the aortic valve. Aortic valve sclerosis is present. TRICUSPID VALVE Structurally normal tricuspid valve. There is mild to moderate tricuspid regurgitation. The estimated pulmonary arterial pressure is 53.6 mmHg. Pacemaker wire is present within the right ventricular cavity. PULMONARY VALVE Trivial pulmonary valve regurgitation. VESSELS The inferior vena cava is normal in size. PERICARDIUM No pericardial effusion. Ericka Pierre MD (Electronically Signed) Final Date:01 November 2017 10:18
--- NOTE | 2017-11-01 11:27 | P.PNIM ---
Subjective Interval history: c/o lower ext peripheral neuropathy burning/stinging. worse at night. wants medication post nasal gtt better right cheek feels stronger. Physical Exam Vital signs: Vital Signs 10/31/17 12:00 10/31/17 16:00 10/31/17 17:39 Temperature 98.6 F 98.8 F Pulse Rate 58 L 61 80 Respiratory Rate 16 18 Blood Pressure 143/66 H 130/95 H Pulse Oximetry 96 95 10/31/17 20:00 11/01/17 00:00 11/01/17 02:52 Temperature 98.1 F 98.1 F Pulse Rate 76 63 81 Respiratory Rate 18 18 Blood Pressure 169/72 H 146/62 H Pulse Oximetry 98 98 11/01/17 04:00 Temperature 97.8 F Pulse Rate 62 Respiratory Rate 18 Blood Pressure 147/66 H Pulse Oximetry 100 Intake & Output 10/31/17 11/01/17 11/01/17 18:59 06:59 18:59 Intake Total 680 / 680 Balance 680 / 680 Weight 81.6 kg Intake: Oral 680 / 680 Other: # Voids 4 Date of Last Bowel Movement 10/30/17 10/31/17 # Bowel Movements 1 right cheek look less drooped today heart reg lung cta abd s/nt ext no edema Results - Labs CBC & Chem 7: 10/31/17 05:07 10/31/17 05:07 Laboratory Results - last 24 hr 10/31/17 10/31/17 10/31/17 11:56 16:15 20:55 POC Glucose 187 H 104 102 11/01/17 07:54 POC Glucose 138 H Assessment and Plan - Assessment (1) Transient cerebral ischemia Code(s): G45.9 - Transient cerebral ischemic attack, unspecified Status: Acute Plan: TIA Right sided facial droop - Pt is an 87 y/o woman with HTN, diabtes, cardiomyopathy, neuropathy, and atrial fibrillation only on ASA 81mg at home. She was brought in as a Stroke Alert on 10/30/17 because she started having trouble speaking. - Head CT 10/30/17 --> Negative for acute process - Head CTA 10/30/17 --> Negative for major branch vessel occlusion. - Neck CTA 10/30/17 --> Calcific plaque bilaterally. The calcific plaque is not hemodynamically significant. Soft plaque on the right and left is identified more on the right. - Pt unable to have a MRI due to pacemaker in place. - Neurology following - PT/ST - Telemetry - 2D echo CONCLUSIONS The left ventricular systolic function is severely reduced with an estimated ejection fraction less than 20%. Moderate concentric left ventricular hypertrophy. Normal left ventricular size. The left atrial size is cmsg-[id number] dilated. There is a pacemaker wire present in the right atrial cavity. Mitral annular calcification is present. Moderate mitral valve regurgitation. Diffuse calcification of the aortic valve. Aortic valve sclerosis is present. There is mild to moderate tricuspid regurgitation. The estimated pulmonary arterial pressure is 53.6 mmHg. Pacemaker wire is present within the right ventricular cavity. Trivial pulmonary valve regurgitation. - Pt will need to be started on anticoagulant given her A. fib today. - will add bedtime dose neurontin for her neuropathy and titrate as needed. - PT/ST possible dc tomorrow. A. fib - Cont. Cardizem and Dig - Pt was on ASA as an outpt - She has a listed allergy to Coumadin, but the specifics of this are unclear. She denies any hx of significant bleeding problems (2) A-fib Code(s): I48.91 - Unspecified atrial fibrillation Status: Acute (3) HTN (hypertension) Code(s): I10 - Essential (primary) hypertension Status: Acute (1) Transient cerebral ischemia Qualifiers: Transient cerebral ischemia type: unspecified Qualified Code(s): G45.9 - Transient cerebral ischemic attack, unspecified
--- NOTE | 2017-11-01 11:40 | P.PN ---
Subjective Interval history: no new issues today. Physical Exam Vital signs: Vital Signs 10/31/17 12:00 10/31/17 16:00 10/31/17 17:39 Temperature 98.6 F 98.8 F Pulse Rate 58 L 61 80 Respiratory Rate 16 18 Blood Pressure 143/66 H 130/95 H Pulse Oximetry 96 95 10/31/17 20:00 11/01/17 00:00 11/01/17 02:52 Temperature 98.1 F 98.1 F Pulse Rate 76 63 81 Respiratory Rate 18 18 Blood Pressure 169/72 H 146/62 H Pulse Oximetry 98 98 11/01/17 04:00 Temperature 97.8 F Pulse Rate 62 Respiratory Rate 18 Blood Pressure 147/66 H Pulse Oximetry 100 Intake & Output 10/31/17 11/01/17 11/01/17 18:59 06:59 18:59 Intake Total 680 / 680 Balance 680 / 680 Weight 81.6 kg Intake: Oral 680 / 680 Other: # Voids 4 Date of Last Bowel Movement 10/30/17 10/31/17 # Bowel Movements 1 - Routine Neurological Exam Present: alert, oriented X3, normal reflexes, moving all extremities, normal tone, facial asymmetry, normal speech Results - Labs CBC & Chem 7: 10/31/17 05:07 10/31/17 05:07 Laboratory Results - last 24 hr 10/31/17 10/31/17 10/31/17 11:56 16:15 20:55 POC Glucose 187 H 104 102 11/01/17 07:54 POC Glucose 138 H Assessment and Plan - Plan agrees to start eliquis given hx a fib. no mri has pacer echo flp/statin hga1c. pt eval.uses cane at baseline. d/c planning
[2017-11-01] MEDS: Gabapentin 100 MG Capsule PO SCH (20:15)
[2017-11-02] MEDS: Digoxin 125 MCG Tablet PO SCH (08:34)
[2017-11-02] MEDS: Loratadine 10 MG Tablet PO SCH (08:35)
[2017-11-02] MEDS: Insulin NovoLOG Aspart Correctional Sugar Inj SQ SCH ×4 (08:36→21:31)
[2017-11-02] MEDS: dilTIAZem CD 180 MG Capsule PO SCH (08:36)
--- NOTE | 2017-11-02 11:02 | P.PN ---
Subjective Interval history: staff thought she was slurred this am and pt states tongue felt abnl put dentures in felt better no weakness in arms or legs c/o neuropathy in legs feel hot and trouble at night with it. Physical Exam Vital signs: Vital Signs 11/01/17 12:00 11/01/17 16:00 11/01/17 20:00 Temperature 98.4 F 98.5 F 98.9 F Pulse Rate 60 60 63 Respiratory Rate 18 18 18 Blood Pressure 140/65 158/70 H 150/66 H Pulse Oximetry 98 98 99 11/02/17 00:00 11/02/17 04:00 11/02/17 08:00 Temperature 98.6 F 97.9 F 98 F Pulse Rate 60 61 58 L Respiratory Rate 18 18 20 Blood Pressure 127/68 129/58 L 145/66 H Pulse Oximetry 98 96 96 Intake & Output 11/01/17 11/02/17 11/02/17 18:59 06:59 18:59 Intake Total 120 / 120 Balance 120 / 120 Weight 81.8 kg Intake: Oral 120 / 120 Other: # Voids 3 3 - Routine HEENT Exam Head: Present: normocephalic Eye: Present: EOMI, PERRL - Routine Neck Exam Present: supple - Routine Neurological Exam Present: alert, oriented X3, facial asymmetry, normal speech - Detailed Neurological Exam Neuro motor strength exam: LLE 5/5 (no drift or leg lag chr pain right knee) Cerebellar function: Normal finger to nose DTR: 2+: achilles tendon (L), achilles tendon (R), biceps (L), biceps (R), brachioradialis (L), brachioradialis (R), patellar (L), patellar (R), triceps (L ), triceps (R) Results - Labs CBC & Chem 7: 10/31/17 05:07 10/31/17 05:07 Laboratory Results - last 24 hr 11/01/17 11/01/17 11/01/17 11:48 17:00 19:35 POC Glucose 106 102 167 H Assessment and Plan - Plan agrees to start eliquis given hx a fib.started last night no mri has pacer echo ef 20%mod conc lvh lae flp/statin hga1c. neuropathy labs increase cymbalta 30 mg bid cont gabapentin 100 mg hs vs lyrica 50 mg hs,. pt eval.uses cane at baseline. d/c planning
--- NOTE | 2017-11-02 12:25 | P.PNIM ---
Subjective Interval history: Pt had some difficulty with speech this morning but feels that this was related to not having her dentures in Still with slight right sided facial droop. Physical Exam Vital signs: Vital Signs 11/01/17 16:00 11/01/17 20:00 11/02/17 00:00 Temperature 98.5 F 98.9 F 98.6 F Pulse Rate 60 63 60 Respiratory Rate 18 18 18 Blood Pressure 158/70 H 150/66 H 127/68 Pulse Oximetry 98 99 98 11/02/17 04:00 11/02/17 08:00 Temperature 97.9 F 98 F Pulse Rate 61 58 L Respiratory Rate 18 20 Blood Pressure 129/58 L 145/66 H Pulse Oximetry 96 96 Intake & Output 11/01/17 11/02/17 11/02/17 18:59 06:59 18:59 Intake Total 120 / 120 Balance 120 / 120 Weight 81.8 kg Intake: Oral 120 / 120 Other: # Voids 3 3 Narrative: General: NAD, AAOx3 ENT: Right sided slight facial droop Chest: CTA Cardiac: Regular Abd: +BS, soft ND/NT Ext: No edema, VAN Results - Labs CBC & Chem 7: 10/31/17 05:07 10/31/17 05:07 Laboratory Results - last 24 hr 11/01/17 11/01/17 17:00 19:35 POC Glucose 102 167 H - Imaging Chest X-Ray 10/30/17 14:58 CONCLUSION: Moderate compensated cardiomegaly. Head CT 10/30/17 14:58 CONCLUSION: 1. Negative for acute process Head CTA 10/30/17 14:58 CONCLUSION: 1. Negative for major branch vessel occlusion. Neck CTA 10/30/17 14:58 CONCLUSION: 1. Calcific plaque bilaterally. The calcific plaque is not hemodynamically significant. Soft plaque on the right and left is identified more on the right. Assessment and Plan - Assessment (1) Transient cerebral ischemia Code(s): G45.9 - Transient cerebral ischemic attack, unspecified Status: Acute Plan: TIA Right sided facial droop - Pt is an 87 y/o woman with HTN, diabtes, cardiomyopathy, neuropathy, and atrial fibrillation only on ASA 81mg at home. She was brought in as a Stroke Alert on 10/30/17 because she started having trouble speaking. - Head CT 10/30/17 --> Negative for acute process - Head CTA 10/30/17 --> Negative for major branch vessel occlusion. - Neck CTA 10/30/17 --> Calcific plaque bilaterally. The calcific plaque is not hemodynamically significant. Soft plaque on the right and left is identified more on the right. - Pt unable to have a MRI due to AICD in place. - Neurology following - PT/ST - Telemetry - 2D echo (10/31/17) - Estimated EF less than 20%. Moderate LVH. LA is kxbg-wa-wlbouqocav dilated. - Moderate mitral valve regurgitation. - Aortic valve sclerosis. - Mild to moderate tricuspid regurgitation. - Estimated PA pressure is 53.6 mmHg. - Pt was started on Eliquis 5mg BID on 11/01/17 given her A. fib today. - Neurontin 100mg HS started on 11/01/17 for her neuropathy and titrate as needed. - PT/ST A. fib - Cont. Cardizem and Dig - Pt was on ASA as an outpt - She has a listed allergy to Coumadin, and review of outpt records she reportedly had developed a rash while on the medication. She denies any hx of significant bleeding problems - Pt was started on Eliquis 5mg po BID Depression - Cymbalta 20mg po BID (2) A-fib Code(s): I48.91 - Unspecified atrial fibrillation Status: Chronic (3) HTN (hypertension) Code(s): I10 - Essential (primary) hypertension Status: Chronic - Attending Attestation The exam, history, and the medical decision-making described in the above note were completed with the assistance of the mid-level provider. I reviewed and agree with the findings presented. I attest that I had a [id number]-[id number] encounter with the patient on the same day, and personally performed and documented my assessment and findings in the medical record. Patient examined. Assessment and plan formulated with Evelina Brambila PA-C. I agree with the above. (1) Transient cerebral ischemia Qualifiers: Transient cerebral ischemia type: unspecified Qualified Code(s): G45.9 - Transient cerebral ischemic attack, unspecified
--- NOTE | 2017-11-02 12:27 | P.DCO ---
- Physical Therapy Order: Evaluate and treat, Improve ambulation, Strength and gait training - Occupational Therapy Order: Evaluate and treat, Improve ADL - Speech Therapy Order: To improve: Speech and communication skills - Home Health Nursing Order: Medical education, Signs/symptoms of disease process, Nursing assessment with vital signs - Certification I have seen patient Melba Dickinson on 11/02/17. My clinical findings support the need for the requested home health care services because: Deconditioned with increased weakness I certify that my clinical findings support that this patient is homebound because: Unsteady gait/balance
[2017-11-02] MEDS: Budesonide-Formoterol 160/4.5 MCG 6 GM Inhaler INH SCH ×2 (19:42→21:35)
[2017-11-02] MEDS: Gabapentin 100 MG Capsule PO SCH (21:30)
[2017-11-03] MEDS: Digoxin 125 MCG Tablet PO SCH (08:46)
[2017-11-03] MEDS: dilTIAZem CD 180 MG Capsule PO SCH (08:46)
[2017-11-03] MEDS: Loratadine 10 MG Tablet PO SCH (08:46)
[2017-11-03] MEDS: Insulin NovoLOG Aspart Correctional Sugar Inj SQ SCH ×4 (08:46→22:30)
[2017-11-03] MEDS: Budesonide-Formoterol 160/4.5 MCG 6 GM Inhaler INH SCH ×2 (08:47→22:30)
--- NOTE | 2017-11-03 14:09 | P.DS ---
<Evelina Brambila - Last Filed: 02/03/18 15:21> Date of admission: 10/30/17 16:23 Primary care physician: Samira Downey MD Attending physician on discharge: Sammy Mueller Anticipated date of discharge: 11/04/17 Brief History from admission: Ms. Dickinson is an 87 y/o AAF with HTN, diabetes, diabetic neuropathy, hx of atrial fibrillation and cardiomyopathy with AICD in place. She was brought into the ED at [facility] on 10/31/17 as a Stroke Alert after she was at home with family going over paperwork and suddenly became altered and had slurred speech, facial droop, and not really answering questions. Symptoms began 15-20 minutes prior to ER arrival. Her speech and altered mental status improved but pt continued to have a slight right sided facial droop. No reported weakness in her UE or LE. No headache, dizziness, or palpitations. DS: Diagnosis - Discharge Diagnosis (1) Transient cerebral ischemia Status: Acute (2) A-fib Status: Chronic (3) HTN (hypertension) Status: Chronic DS: Summary Hospital Course: TIA, Likely CVA based on clinical presentation Right sided facial droop - Pt is an 87 y/o woman with HTN, diabtes, cardiomyopathy, neuropathy, and atrial fibrillation only on ASA 81mg at home. She was brought in as a Stroke Alert on 10/30/17 because she started having trouble speaking and some AMS. Pt was evaluated with these imaging studies during admission: - Head CT 10/30/17 --> Negative for acute process - Head CTA 10/30/17 --> Negative for major branch vessel occlusion. - Neck CTA 10/30/17 --> Calcific plaque bilaterally. The calcific plaque is not hemodynamically significant. Soft plaque on the right and left is identified more on the right. - 2D echo (10/31/17) - Estimated EF less than 20%. Moderate LVH. LA is llrj-yb-hparvvdzrm dilated. - Moderate mitral valve regurgitation. - Aortic valve sclerosis. - Mild to moderate tricuspid regurgitation. - Estimated PA pressure is 53.6 mmHg. Pt unable to have a MRI due to AICD in place. Neurology was consulted at admission and it was felt that the pt had a TIA and likely a stroke despite it not being seen on CT and being unable to obtain MRI. PT/ST followed during admission. Pt recommended for [facility]/PT/ST/OT which has been ordered. Pt was started on Eliquis 5mg BID on 11/01/17 given her A. fib. Neurontin 100mg HS started on 11/01/17 for her neuropathy and titrate as needed as an outpt. Pt had previously been on Gabapentin but at higher doses which had been stopped due to lethargy per the pt. We will continue at a lower dose upon discharge. We offered the pt and family several times for the pt to go to rehab as on 11/03 she complained of some right handed clumsiness and difficulty with dressing herself which developed that morning and her son that she lives with injured his ankle and was having some difficulty getting around but the pt declined this. We told her that should she not do well at home following discharge she could always contact her PCP to try to arrange rehab placement. Pt will need to followup with Dr. Frances in 2 weeks Pt will need to followup with her PCP, Dr. Downey, in 1 week A. fib - Cont. Cardizem and Dig. Pt was on ASA as an outpt. She has a listed allergy to Coumadin, and review of outpt records she reportedly had developed a rash while on the medication. She denies any hx of significant bleeding problems. Pt was started on Eliquis 5mg po BID Depression - Cymbalta 20mg po BID - Time Spent with Patient Total time spent providing and/or coordinating discharge services: Greater than 30 minutes Exam Vital signs: Vital Signs 11/02/17 16:00 11/02/17 20:00 11/03/17 00:00 Temperature 97.8 F 97.8 F 97.7 F Pulse Rate 65 71 61 Respiratory Rate 20 18 18 Blood Pressure 117/54 L 131/60 133/93 H Pulse Oximetry 97 98 98 11/03/17 04:00 11/03/17 08:00 Temperature 97.6 F 97.9 F Pulse Rate 60 60 Respiratory Rate 18 20 Blood Pressure 150/65 H 136/62 Pulse Oximetry 96 100 Intake & Output 11/02/17 11/03/17 11/03/17 18:59 06:59 18:59 Intake Total 360 / 360 Balance 360 / 360 Weight 81.4 kg Intake: Oral 360 / 360 Other: # Voids 1 2 Narrative: General: NAD, AAOx3 ENT: Right sided slight facial droop Chest: CTA Cardiac: Regular Abd: +BS, soft ND/NT Ext: No edema, VAN Results Procedures completed during hospitalization: See above Labs on day of discharge: Labs from last 24 hours 11/03/17 11/03/17 11/02/17 13:15 08:42 21:29 POC Glucose 97 111 H 123 H Total Protein (PEP) Albumin (PEP) Albumin/Globulin Ratio Aonkv-3-Lhwvofabk Wgmbb-3-Wpdqdzvny Beta Globulins Gamma Globulins PEP Pathologist Comment Thiamine Vitamin B6 Vitamin B12 TSH 11/02/17 11/02/17 11/02/17 14:02 14:02 14:02 POC Glucose Total Protein (PEP) 6.4 Albumin (PEP) 2.07 L Albumin/Globulin Ratio 0.48 L Xpjpl-2-Ucewdxske 0.31 H Xcufo-1-Oosufwuxr 0.90 Beta Globulins 0.86 Gamma Globulins 2.27 H PEP Pathologist Comment Pending Thiamine Pending Vitamin B6 Pending Vitamin B12 Greater than 2000 H TSH 5.160 H - Impressions ITS Impressions Chest X-Ray 10/30/17 14:58 CONCLUSION: Moderate compensated cardiomegaly. Head CT 10/30/17 14:58 CONCLUSION: 1. Negative for acute process Head CTA 10/30/17 14:58 CONCLUSION: 1. Negative for major branch vessel occlusion. Neck CTA 10/30/17 14:58 CONCLUSION: 1. Calcific plaque bilaterally. The calcific plaque is not hemodynamically significant. Soft plaque on the right and left is identified more on the right. <Sammy Mueller - Last Filed: 02/05/18 12:04> Date of admission: 10/30/17 16:23 Primary care physician: Samira Downey MD DS: Diagnosis - Discharge Diagnosis (1) Transient cerebral ischemia Status: Acute (2) A-fib Status: Chronic (3) HTN (hypertension) Status: Chronic DS: Summary Hospital Course: The exam, history, and the medical decision-making described in the above note were completed with the assistance of the mid-level provider. I reviewed and agree with the findings presented. I attest that I had a wklq-er-pwqq encounter with the patient on the same day, and personally performed and documented my assessment and findings in the medical record. Patient examined. Assessment and plan formulated with Evelina Brambila PA-C. I agree with the above. - Time Spent with Patient Total time spent providing and/or coordinating discharge services: Greater than 30 minutes Results - Impressions ITS Impressions Chest X-Ray 10/30/17 14:58 CONCLUSION: Moderate compensated cardiomegaly. Head CT 10/30/17 14:58 CONCLUSION: 1. Negative for acute process Head CTA 10/30/17 14:58 CONCLUSION: 1. Negative for major branch vessel occlusion. Neck CTA 10/30/17 14:58 CONCLUSION: 1. Calcific plaque bilaterally. The calcific plaque is not hemodynamically significant. Soft plaque on the right and left is identified more on the right. Discharge Plan - Discharge Order Discharge Orders: Discharge Order (Routine); Ordered 11/04/17 Ordered By: Evelina Brambila - Discharge Details Anticipated Discharge Date: 11/04/17 - Physicians Team Primary Care Provider: Samira Downey Attending Provider: Jayson Ruano Other Providers: Clara Frances MD
[2017-11-03] MEDS: Gabapentin 100 MG Capsule PO SCH (22:29)
[2017-11-04 05:50] VITALS: PULSE 60
[2017-11-04] MEDS: dilTIAZem CD 180 MG Capsule PO SCH (09:26)
[2017-11-04] MEDS: Insulin NovoLOG Aspart Correctional Sugar Inj SQ SCH (09:27)
[2017-11-04] MEDS: Loratadine 10 MG Tablet PO SCH (09:27)
[2017-11-04] MEDS: Digoxin 125 MCG Tablet PO SCH (09:27)
[2017-11-04] MEDS: Budesonide-Formoterol 160/4.5 MCG 6 GM Inhaler INH SCH (09:28)
[2017-11-04 10:30] VITALS: BP 153/69; RESP 17; TEMP 97.4; O2SAT 96
== END 2017-11-04 10:16 | disposition home health service (06) ==
LOC: NEPE 14:55 → NEDA 16:23 → N05 18:24
PROVIDERS: ADMIT Hospitalist; ATTEND Hospitalist
DX: Z88.8 Allergy status to other drugs, medicaments and biological substances; Z79.899 Other long term (current) drug therapy; Z96.659 Presence of unspecified artificial knee joint; I42.9 Cardiomyopathy, unspecified; I10 Essential (primary) hypertension; I48.2 Chronic atrial fibrillation; Z79.01 Long term (current) use of anticoagulants; Z79.891 Long term (current) use of opiate analgesic; G45.9 Transient cerebral ischemic attack, unspecified; Z95.810 Presence of automatic (implantable) cardiac defibrillator; R47.81 Slurred speech; E11.40 Type 2 diabetes mellitus with diabetic neuropathy, unspecified; R29.810 Facial weakness; F32.9 Major depressive disorder, single episode, unspecified